=== PATIENT | female | born 1990 | race Caucasian/White ===

== ENCOUNTER 2018-08-23 13:13 | Inpatient (IN) | payer OTHER ==
[~2018-08-23] VITALS: Ht 160 cm; Wt 78.5 kg
[2018-08-24 16:51] VITALS: BP 117/73
[2018-08-24] MEDS ORDERED: RINGERS SOLUTION,LACTATED 1,000 ML IV PRN (17:05)
[2018-08-24] MEDS ORDERED: OXYTOCIN 30 UNITS/LACT RINGERS 500 ML IV ONE (17:05)
[2018-08-24] MEDS ORDERED: CITRIC ACID/SODIUM CITRATE 30 ML SOLUTION UDCUP PO PRN (17:15)
[2018-08-24] MEDS ORDERED: METOCLOPRAMIDE HCL 5 MG/ML 2 ML VIAL IVP PRN (17:15)
[2018-08-24] MEDS ORDERED: FentaNYL CITRATE-PF 100 MCG/2 ML VIAL IVP PRN (17:15)
[2018-08-24 17:28] LABS: BASOPHILS % (AUTO) 0.3 % (0.0-2.0); EOSINOPHILS % (AUTO) 0.4 % (1.0-6.0); HEMATOCRIT 35.2 % (36-46); HEMOGLOBIN 11.6 g/dL (12.0-16.0); LYMPHOCYTES # (AUTO) 2.6 K/uL (1.0-4.8); LYMPHOCYTES % (AUTO) 21.4 % (22.0-44.0); MEAN CORPUSCULAR HEMOGLOBIN 27.7 pg (26.0-34.0); MEAN CORPUSCULAR VOLUME 84 fL (80-100); MONOCYTES # (AUTO) 0.9 K/uL (0.1-1.0); MONOCYTES % (AUTO) 7.5 % (2.0-9.0); NEUTROPHILS # (AUTO) 8.7 K/uL (1.8-7.7); NEUTROPHILS % (AUTO) 70.4 % (40.0-70.0); PLATELET COUNT (AUTO)-OB 178 K/uL (150-450); RED CELL DISTRIBUTION WIDTH 14.2 % (11.5-14.5)
[2018-08-24] MEDS: RINGERS SOLUTION,LACTATED 1,000 ML IV SCH (18:41)
[2018-08-24] MEDS ORDERED: OXYTOCIN 30 UNITS/LACT RINGERS 500 ML IV PRN (19:00)
[2018-08-24] MEDS ORDERED: OXYGEN THERAPY IH SCH (20:00)
[2018-08-25] MEDS: RINGERS SOLUTION,LACTATED 1,000 ML IV SCH ×2 (01:41→04:54)
[2018-08-25] MEDS ORDERED: ROPIVACAINE HCL/PF 0.2% 100 ML ED ONE ×2 (04:53→10:59)
[2018-08-25] MEDS ORDERED: LIDOCAINE/PF 2% 5 ML VIAL ONE (04:53)
[2018-08-25] MEDS ORDERED: BUPIV ED PRN (05:06)
[2018-08-25] MEDS ORDERED: FENTANYL ED PRN (05:06)
[2018-08-25] MEDS ORDERED: [UNRECOGNIZED DRUG - OTHER] ED PRN (05:06)
[2018-08-25] MEDS ORDERED: NALBUPHINE HCL 10 MG/ML VIAL IVP PRN (05:15)
[2018-08-25] MEDS ORDERED: DiphenhydrAMINE HCL 50 MG/ML VIAL IVP PRN (05:15)
[2018-08-25] MEDS ORDERED: ONDANSETRON HCL 4 MG/2 ML VIAL IVP PRN (05:15)
[2018-08-25 09:48] VITALS: BP 107/69
[2018-08-25] MEDS ORDERED: ACETAMINOPHEN/CODEINE 300-30 MG TABLET PO PRN ×2 (11:30)
[2018-08-25] MEDS ORDERED: GLYCERIN/WITCH HAZEL LEAF 40 PADS JAR TP PRN (11:30)
[2018-08-25] MEDS ORDERED: LANOLIN 7 GM OINTMENT TP PRN (11:30)
[2018-08-25] MEDS ORDERED: BENZOCAINE 20%/MENTHOL 56 GM SPRAY CANISTER TP PRN (11:30)
[2018-08-25 11:42] VITALS: BP 119/76
[2018-08-25] MEDS: IBUPROFEN 800 MG TABLET PO SCH ×2 (12:06→17:56)
[2018-08-25] MEDS ORDERED: MAGNESIUM HYDROXIDE SUSPENSION 30 ML UDCUP PO SCH (21:00)
[2018-08-26] MEDS: IBUPROFEN 800 MG TABLET PO SCH ×2 (00:11→06:09)
[2018-08-26] MEDS ORDERED: IBUP-2070 PO (09:38)
[2018-08-26] MEDS ORDERED: DSS100 PO (09:38)
== END 2018-08-26 13:30 | disposition home or self-care (01) | DRG 807 ==
LOC: OBSVTOIN 08-24 15:45 → 4S 08-24 15:45
PROVIDERS: ADMIT Obstetrics & Gynecology; ATTEND Obstetrics & Gynecology
PROC: 10E0XZZ Delivery of Products of Conception, External Approach (ICD-10-PCS; principal; 2018-08-25)
PROC: 3E0R3BZ Introduction of Anesthetic Agent into Spinal Canal, Percutaneous Approach (ICD-10-PCS; 2018-08-25)
PROC: 00HU33Z Insertion of Infusion Device into Spinal Canal, Percutaneous Approach (ICD-10-PCS; 2018-08-25)
DX: O69.81X0 Labor and delivery complicated by cord around neck, without compression, not applicable or unspecified (principal); Z37.0 Single live birth; Z3A.41 41 weeks gestation of pregnancy
CPT/HCPCS: 86850; 86900; 86901; J2590; J2795; J3490; J7120